=== PATIENT | female | born 1995 | race Caucasian/White ===

== ENCOUNTER 2018-04-18 12:11 | Emergency (ER) | payer OTHER ==
[2018-04-18 13:05] LABS: Absolute Lymphocytes (CBC) 1.9 K/uL (0.7-4.9); Absolute Monocytes 0.7 K/uL (0.1-1.3); Basophils % 0.4 % (0-1.3); Eosinophils % 3.5 % (0-4.4); Hematocrit 33.5 % (36.0-45.0); Lymphocytes % 32.3 % (15.3-44.8); MCH 20.9 pg (27.0-35.0); MCV 65.1 fL (80-100); Monocytes % 12.3 % (3.3-12.3); RBC Red Blood Cell Count 5.15 M/uL (3.86-4.86)
[2018-04-18] MEDS ORDERED: ONDANSETRON 4 MG (ODT) TAB ONE (13:07)
[2018-04-18 13:21] LABS: Urine Blood 2+ (NEG); Urine Glucose NEGATIVE (NEG); Urine Protein 2+ (NEG); Urine pH 5.5 (5.0-7.0)
[2018-04-18 13:28] LABS: ALT/SGPT 22 U/L (12-78); AST/SGOT 22 U/L (15-37); Albumin 4.1 g/dL (3.4-5.0); Alkaline Phosphatase 94 U/L (45-117); Amylase Level 52 U/L (25-115); BUN Blood Urea Nitrogen 16 mg/dL (7-18); Bicarbonate 27 mmol/L (21-32); Bilirubin Direct 0.2 mg/dL (0-0.2); Glucose Level 79 mg/dL (74-106); Lipase 147 U/L (73-393); Potassium 3.8 mmol/L (3.5-5.1); Sodium Level 139 mmol/L (136-145)
[2018-04-18 13:36] LABS: Urine Bacteria <20 /HPF (<20); Urine Culture Reflex Order NOT NEEDED; Urine Mucus 1+ /HPF (NONE SEEN); Urine RBC <5 /HPF (NONE SEEN)
[2018-04-18 13:58] LABS: Blood Morphology Comment NOTED (NOT SEEN); Hypochromasia 1+; Platelet Estimate ADEQ; Urine White Blood Cell Casts OK
--- NOTE | 2018-04-18 16:42 | RAD REPORT ---
EXAM DESCRIPTION: US - Pelvis Complete - 04/18/2018 4:34 pm CLINICAL HISTORY: pelvic pain Pelvic pain. COMPARISON: No comparisons FINDINGS: The uterus is normal in size, shape and echotexture. The uterus measures 8.0 x 5.4 x 4.2 c m. The endometrial stripe measures 7 mm, normal. Both ovaries are normal in size, shape and echotexture. The right ovary measures 3.3 x 2.4 x 2.2 cm. The left ovary measures 3.0 x 2.8 x 1.7 cm. No ovarian or parovarian lesions. No adnexal masses. Normal Doppler blood flow was demonstrated to both ovaries. No significant pelvic ascites. IMPRESSION: Unremarkable study.
--- NOTE | 2018-04-18 17:00 | EDPHYS ---
Physician Documentation [facility] Name: Tigist Farias Age: 22 yrs Sex: Female : 1995 Arrival Date: 04/18/2018 Time: 12:15 Bed 8 Private MD: None, None ED Physician Eduardo Reich HPI: 04/18 12:52 This 22 yrs old Female presents to ER via Ambulatory with complaints of jmm Urinary Problem. 12:52 The patient complains of pain in the right flank. The pain does not radiate. Onset: The jmm symptoms/episode began/occurred gradually, 1 day(s) ago. Modifying factors: The symptoms are alleviated by nothing. the symptoms are aggravated by nothing. Associated signs and symptoms: Pertinent positives: nausea. This is a 22 year old female with a history of chronic uti's that presents to the ED with lower back pain, dysuria beginning 1 days ago. Patient states she attempted to take a shower to relieve her back pain and states that she nearly collapsed. Patient denies fever or vomiting. . 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 - Social history:: Smoking status: Patient/guardian denies using tobacco. - Ebola Screening: : Patient denies travel to an Ebola-affected area in the 21 days before illness onset. ROS: 12:52 Cardiovascular: Negative for chest pain, palpitations, and edema, Respiratory: Negative jmm for shortness of breath, cough, wheezing, and pleuritic chest pain. 12:52 Constitutional: Positive for fatigue. 12:52 Abdomen/GI: Positive for abdominal pain, nausea. 12:52 Back: Positive for pain at rest. 12:52 : Positive for urinary symptoms. 12:52 All other systems are negative. Exam: 12:52 Constitutional: This is a well developed, well nourished patient who is awake, alert, jmm and in no acute distress. Head/Face: atraumatic. Chest/axilla: Normal chest wall appearance and motion. Cardiovascular: Regular rate and rhythm. No edema appreciated Respiratory: Normal respirations, no respiratory distress appreciated 12:52 Abdomen/GI: Inspection: abdomen appears normal, Bowel sounds: normal, Palpation: soft, mild abdominal tenderness, in the suprapubic area. 12:52 Back: CVA tenderness, that is mild, is noted on the right. 12:52 Skin: Appearance: Color: normal in color. 12:52 Neuro: Orientation: is normal, Mentation: is normal, Memory: is normal. 12:52 Psych: Behavior/mood is pleasant, cooperative. 12:55 : Pelvic Exam: Speculum exam: normal findings, bimanual exam reveals right adnexal jmm tenderness, left adnexal tenderness. Vital Signs: 12:20 BP 106 / 63; Pulse 80; Resp 18; Temp 98.7(O); Pulse Ox 100% on R/A; Weight 42.18 kg aj1 (R); Height 5 ft. 6 in. (167.64 cm) (R); Pain 9/10; 13:30 BP 105 / 66; Pulse 84; Resp 16 S; Pulse Ox 100% on R/A; aa5 14:50 BP 102 / 77; Pulse 78; Resp 16 S; Pulse Ox 100% on R/A; aa5 15:33 BP 103 / 65; Pulse 85; Resp 16; Pulse Ox 100% ; jl7 16:26 BP 96 / 54; Pulse 62; Resp 14; Temp 98.3; Pulse Ox 99% on R/A; Pain 0/10; ch 17:23 BP 111 / 61; Pulse 91; Resp 16; Pulse Ox 100% on R/A; Pain 0/10; iw 12:20 Body Mass Index 15.01 (42.18 kg, 167.64 cm) aj1 MDM: 12:31 Patient medically screened. [facility] 16:59 Data reviewed: vital signs, nurses notes, radiologic studies, ultrasound. Counseling: I yazm had a detailed discussion with the patient and/or guardian regarding: the historical points, exam findings, and any diagnostic results supporting the discharge/admit diagnosis, lab results, radiology results, the need for outpatient follow up, to return to the emergency department if symptoms worsen or persist or if there are any questions or concerns that arise at home. 16:59 ED course: Patient is alert and non toxic in appearance in the ED. Symptoms appear to jmm be related to pelvic pain. labs and us unremarkable. i do not suspect ovarian torsion. Due to dysuria patient prescribed oral antibiotics. 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 Patient understood and agrees with the plan of care. . 04/18 12:39 Order name: Amylase, Serum; Complete Time: 13:59 [facility] 04/18 12:39 Order name: Basic Metabolic Panel; Complete Time: 13:59 [facility] 04/18 12:39 Order name: CBC with Diff; Complete Time: 13:59 [facility] 04/18 12:39 Order name: Creatinine for Radiology; Complete Time: 13:59 [facility] 04/18 12:39 Order name: Hepatic Function; Complete Time: 13:59 [facility] 04/18 12:39 Order name: Lipase; Complete Time: 13:59 [facility] 04/18 12:39 Order name: Urine Microscopic Only; Complete Time: 13:59 [facility] 04/18 12:42 Order name: Urine Dipstick--Ancillary (enter results); Complete Time: 13:[address] [facility] 04/18 12:42 Order name: Urine --Ancillary (enter results); Complete Time: 13:[address] [facility] 04/18 13:19 Order name: CBC Smear Scan; Complete Time: 13:59 [facility] 04/18 14:26 Order name: GC (GONORR/CHLAMYDIA) Probe [facility] 04/18 14:26 Order name: Wet Prep; Complete Time: 15:39 [facility] 04/18 14:47 Order name: US Pelvis Complete; Complete Time: 16:48 [facility] 04/18 12:39 Order name: Urine Test (obtain specimen); Complete Time: 12:46 [facility] 04/18 12:39 Order name: IV Saline Lock; Complete Time: 12:46 [facility] 04/18 12:39 Order name: Labs collected and sent; Complete Time: 12:46 [facility] 04/18 12:39 Order name: Urine Dipstick-Ancillary (obtain specimen); Complete Time: 12:46 [facility] Administered Medications: 13:06 Drug: Zofran 4 mg Route: PO; aa5 19:20 Follow up: Response: No adverse reaction; Marked relief of symptoms 13:07 CANCELLED (Physician Discretion): Zofran 4 mg IVP once; over 2 minutes aa5 13:07 CANCELLED (Physician Discretion): NS 0.9% 1000 ml IV at 1 bolus Per protocol; 1000 mL aa5 bolus Disposition: 04/18/18 16:59 Discharged to Home. Impression: Pelvic Pain, Dysuria. - Condition is Stable. - Discharge Instructions: Dysuria. - Prescriptions for Cephalexin 500 mg Oral Capsule - take 1 capsule by ORAL route every 12 hours for 10 days; 20 capsule. - Medication Reconciliation Form, Thank You Letter, Antibiotic Education, Prescription Opioid Use form. - Follow up: Vaughn Snider MD; When: 2 - 3 days; Reason: Continuance of care. Addendum: 04/20/2018 13:59 Co-signature as Attending Physician, Eduardo Reich MD I agree with the assessment and c yeager plan of care. Signatures: Dispatcher [employer] EDMS Cheryl Elder RN RN aj1 Eduardo Reich MD MD cha Mickail, Joel, PA PA [facility] Nydia Bar RN RN Nila Meade RN RN [facility] Adry De Leon RN Corrections: (The following items were deleted from the chart) 04/18 13:07 12:44 Zofran 4 mg IVP once; over 2 minutes ordered. [place] [id number] 13:07 12:44 NS 0.9% 1000 ml IV at 1 bolus Per protocol; 1000 mL bolus ordered. [place] [address] 13:07 13:06 Zofran 4 mg IVP once; over 2 minutes ordered. [place] [address] 13:07 13:06 NS 0.9% 1000 ml IV at 1 bolus Per protocol; 1000 mL bolus ordered. [place] [address] 17:23 16:59 04/18/2018 16:59 Discharged to Home. Impression: Pelvic Pain; Dysuria. Condition iw is Stable. Forms are Medication Reconciliation Form, Thank You Letter, Antibiotic Education, Prescription Opioid Use. Follow up: Vaughn Snider; When: 2 - 3 days; Reason: Continuance of care. [facility] 22:01 21:59 ED course: Patient is alert and non toxic in appearance in the ED. Symptoms m appear to be related to pelvic pain. labs and us unremarkable. i do not suspect ovarian torsion. Due to dysuria patient prescribed oral antibiotics. 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 Patient understood and agrees with the plan of care. . [facility]
--- NOTE | 2018-04-18 17:00 | ER ---
Nurse's Notes [facility] Name: Tigist Farias Age: 22 yrs Sex: Female : 1995 Arrival Date: 04/18/2018 Time: 12:15 Bed 8 Private MD: None, None Diagnosis: Pelvic Pain;Dysuria Presentation: 04/18 12:16 Presenting complaint: Patient states: Dysuria, urinary frequency, and lower pain since aj1 yesterday. Denies fever. Transition of care: patient was not received from another setting of care. Onset of symptoms was April 17, 2018. Risk Assessment: Do you want to hurt yourself or someone else? Patient reports no desire to harm self or others. Initial Sepsis Screen: Does the patient meet any 2 criteria? No. Patient's initial sepsis screen is negative. Does the patient have a suspected source of infection? No. Patient's initial sepsis screen is negative. Care prior to arrival: None. 12:16 Method Of Arrival: Ambulatory aj 12:16 Acuity: VERONICA 4 aj1 Triage Assessment: 12:20 General: Appears in no apparent distress. comfortable, Behavior is calm, cooperative, aj1 appropriate for age. Pain: Pain currently is 9 out of 10 on a pain scale. Neuro: Level of Consciousness is awake, alert, obeys commands. Cardiovascular: Patient's skin is warm and dry. Respiratory: Airway is patent Respiratory effort is even, unlabored, Respiratory pattern is regular, symmetrical. 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 - Social history:: Smoking status: Patient/guardian denies using tobacco. - Ebola Screening: : Patient denies travel to an Ebola-affected area in the 21 days before illness onset. Screenin:45 Abuse screen: Denies threats or abuse. Nutritional screening: No deficits noted. aa5 Tuberculosis screening: No symptoms or risk factors identified. Fall Risk None identified. Assessment: 12:45 General: Appears comfortable, Behavior is calm, cooperative. Pain: Complains of pain in aa5 suprapubic area Pain does not radiate. Pain currently is 9 out of 10 on a pain scale. Quality of pain is described as pressure, Pain began 1 day ago. Is continuous. Neuro: Level of Consciousness is awake, alert, obeys commands, Oriented to person, place, time, situation. Cardiovascular: Heart tones S1 S2 present Rhythm is regular. Respiratory: Airway is patent Respiratory effort is even, unlabored, Respiratory pattern is regular, symmetrical. GI: Abdomen is flat, non-distended, Bowel sounds present X 4 quads. Abd is soft and non tender X 4 quads. Reports nausea, Patient currently denies vomiting. : Reports urinary frequency, Denies burning with urination. EENT: No signs and/or symptoms were reported regarding the EENT system. Derm: Skin is pink, warm \T\ dry. Musculoskeletal: Range of motion: intact in all extremities. 13:00 Reassessment: Unable to obtain IV access at this time, PA notified. PA states to wait aa5 on lab results before attempting for IV again. Zofran changed to PO and order to give fluids PO a few minutes after Zofran administration. . 14:00 Reassessment: Patient and/or family updated on plan of care and expected duration. Pain aa5 level reassessed. Patient is alert, oriented x 3, equal unlabored respirations, skin warm/dry/pink. Pt tolerated water well, PA notified . 14:58 Reassessment: Patient and/or family updated on plan of care and expected duration. Pain aa5 level reassessed. Patient is alert, oriented x 3, equal unlabored respirations, skin warm/dry/pink. Awaiting US . 16:26 Reassessment: Patient appears in no apparent distress at this time. No changes from previously documented assessment. Patient and/or family updated on plan of care and expected duration. Pain level reassessed. Patient is alert, oriented x 3, equal unlabored respirations, skin warm/dry/pink. US at bedside Patient denies pain at this time. Vital Signs: 12:20 BP 106 / 63; Pulse 80; Resp 18; Temp 98.7(O); Pulse Ox 100% on R/A; Weight 42.18 kg aj1 (R); Height 5 ft. 6 in. (167.64 cm) (R); Pain 9/10; 13:30 BP 105 / 66; Pulse 84; Resp 16 S; Pulse Ox 100% on R/A; aa5 14:50 BP 102 / 77; Pulse 78; Resp 16 S; Pulse Ox 100% on R/A; aa5 15:33 BP 103 / 65; Pulse 85; Resp 16; Pulse Ox 100% ; jl7 16:26 BP 96 / 54; Pulse 62; Resp 14; Temp 98.3; Pulse Ox 99% on R/A; Pain 0/10; ch 17:23 BP 111 / 61; Pulse 91; Resp 16; Pulse Ox 100% on R/A; Pain 0/10; iw 12:20 Body Mass Index 15.01 (42.18 kg, 167.64 cm) aj1 ED Course: 12:15 Patient arrived in ED. mr 12:15 None, None is Private Physician. mr 12:20 Triage completed. aj1 12:20 Arm band placed on Patient placed in an exam room. aj1 12:26 Mark Thomason PA is PHCP. [facility] 12:26 Eduardo Reich MD is Attending Physician. [facility] 12:30 Urine collected: clean catch specimen, cloudy, dandre colored. jb1 12:45 Nila Meade, RN is Primary Nurse. aa5 12:45 Patient has correct armband on for positive identification. Placed in gown. Bed in low aa5 position. Call light in reach. Side rails up X2. 12:50 2 missed IV attempts by Cheryl Elder RN. aa5 14:45 Assist provider with pelvic exam: Set up pelvic tray. Performed by Mark LINARES aa5 Specimens sent to lab. Patient tolerated well. 16:04 Report given to MARY Rider. aa5 16:25 Primary Nurse role handed off by Nila Meade, RN ch 16:25 Adry De Leon, RN is Primary Nurse. ch 16:26 No apparent distress. Resting quietly. ch 16:26 Warm blanket given. Pillow given. ch 16:31 Ultrasound completed. Patient tolerated well. Radiology exam delayed due to BLADDER NOT sg3 FULL. 16:34 US Pelvis Complete In Process Unspecified. EDMS 16:59 Vaughn Snider MD is Referral Physician. [facility] 18:38 Valuables gave wallet to security to lock up, called both numbers on the face, got no bd answer at either number.. Administered Medications: 13:06 Drug: Zofran 4 mg Route: PO; aa5 19:20 Follow up: Response: No adverse reaction; Marked relief of symptoms 13:07 CANCELLED (Physician Discretion): Zofran 4 mg IVP once; over 2 minutes aa5 13:07 CANCELLED (Physician Discretion): NS 0.9% 1000 ml IV at 1 bolus Per protocol; 1000 mL aa5 bolus Outcome: 16:59 Discharge ordered by MD. quinn 17:23 Discharged to home ambulatory, with friend. iw 17:23 Condition: good 17:23 Discharge instructions given to patient, Instructed on discharge instructions, follow up and referral plans. medication usage, Demonstrated understanding of instructions, follow-up care, medications, Prescriptions given X 1. 17:23 Patient left the ED. iw Signatures: Dispatcher [employer] EDMS Sebastián Joiner jb1 Savanna Aburto Christina, RN Cheryl Stern ch, RN RN aj1 Mark Thomason PA PA jmm Rivera, Maria mr Williams, Irene, RN MARY Nila Meade RN RN aa5 Lotus Davis RN RN jl7 Sharona Osborn 3
[2018-04-21 20:33] LABS: C.trachomatis RNA,TMA Not Detected (Not Detected)
== END 2018-04-18 17:23 | disposition home or self-care (01) ==
LOC: ER 12:11
DX: R30.0 Dysuria (principal)
CPT/HCPCS: 36415; 76856; 80048; 80076; 81003; 81015; 81025; 82150; 83690; 85025; 87210; 87490; 87590; 99284

== ENCOUNTER 2018-06-15 17:02 | Emergency (ER) | payer OTHER ==
[2018-06-15 19:20] LABS: ALT/SGPT 15 U/L (12-78); AST/SGOT 17 U/L (15-37); Alkaline Phosphatase 88 U/L (45-117); BUN Blood Urea Nitrogen 8 mg/dL (7-18); Bicarbonate 24 mmol/L (21-32); Bilirubin Total 0.8 mg/dL (0.2-1.0); Glucose Level 84 mg/dL (74-106); Potassium 3.7 mmol/L (3.5-5.1); Protein, Total 7.7 g/dL (6.4-8.2); Sodium Level 139 mmol/L (136-145)
--- NOTE | 2018-06-15 19:47 | ER ---
Nurse's Notes [facility] Name: Tigist Farias Age: 22 yrs Sex: Female : 1995 Arrival Date: 06/15/2018 Time: 17:07 Bed 10 Private MD: None, None Diagnosis: related conditions, unspecified Presentation: 06/15 17:28 Presenting complaint: Patient states: "I had a very difficult labor with my last baby, hb then was hospitalized for 3 weeks for kidney infection, and I was told I could have , and if I got again it would be high risk, now I am again and am worried I am going to ." + home test, LMP 05/20/18. Transition of care: patient was not received from another setting of care. Onset of symptoms was June 15, 2018. Risk Assessment: Do you want to hurt yourself or someone else? Patient reports no desire to harm self or others. Care prior to arrival: None. 17:28 Method Of Arrival: Ambulatory 17:28 Acuity: VERONICA 4 hb 18:35 Initial Sepsis Screen: Does the patient meet any 2 criteria? No. Patient's initial rv sepsis screen is negative. Does the patient have a suspected source of infection? No. Patient's initial sepsis screen is negative. 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 - Social history:: Smoking status: Patient uses tobacco products, Patient uses Patient/guardian denies using alcohol, street drugs, The patient lives. - Ebola Screening: : No symptoms or risks identified at this time. - Family history:: not pertinent. Screenin:35 Abuse screen: Denies threats or abuse. Denies injuries from another. Nutritional rv screening: No deficits noted. Tuberculosis screening: No symptoms or risk factors identified. Fall Risk None identified. Assessment: 18:34 General: Appears in no apparent distress. comfortable, Behavior is calm, cooperative. rv Pain: Denies pain. Neuro: Level of Consciousness is awake, alert, obeys commands, Oriented to person, place, time, situation. Cardiovascular: Capillary refill < 3 seconds. Respiratory: Airway is patent. GI: No signs and/or symptoms were reported involving the gastrointestinal system. : No signs and/or symptoms were reported regarding the genitourinary system. EENT: No signs and/or symptoms were reported regarding the EENT system. Derm: Skin is intact. Vital Signs: 17:31 BP 131 / 74; Pulse 98; Resp 16; Temp 98; Pulse Ox 100% on R/A; Pain 0/10; hb 18:45 BP 123 / 112; Pulse 95; Pulse Ox 97% on R/A; rv 20:11 BP 120 / 76; Pulse 92; Resp 18; Pulse Ox 100% ; Pain 0/10; rv ED Course: 17:07 Patient arrived in ED. sb2 17:07 None, None is Private Physician. sb2 17:31 Triage completed. hb 17:32 Arm band placed on right wrist. hb 17:41 Ashley Batista MD is Attending Physician. ma2 18:35 Patient has correct armband on for positive identification. Call light in reach. Adult rv w/ patient. Pulse ox on. NIBP on. 18:46 Initial lab(s) drawn, by me, sent to lab. rv 20:09 No provider procedures requiring assistance completed. Patient did not have IV access rv during this emergency room visit. Administered Medications: No medications were administered Outcome: 19:46 Discharge ordered by . ma2 20:11 Discharged to home rv 20:11 Condition: stable 20:11 Discharge instructions given to patient. 20:11 Patient left the ED. rv Signatures: Ami Brannon, RN RN Ashley Batista MD MD va2 Anita Ocampo 2 Néstor Porter RN RN rv
--- NOTE | 2018-06-15 19:47 | EDPHYS ---
Physician Documentation [facility] Name: Tigist Farias Age: 22 yrs Sex: Female : 1995 Arrival Date: 06/15/2018 Time: 17:07 Bed 10 Private MD: None, None ED Physician Ashley Batista HPI: 06/15 19:44 This 22 yrs old Female presents to ER via Ambulatory with complaints of ma2 Anxiety - ABOUT . 19:44 6 weeks and states that she had kidney problem with last and want ma2 that to be checked no symptoms today . Onset: The symptoms/episode began/occurred gradually, 6 week(s) ago. Severity of symptoms: At their worst the symptoms were very mild. The patient has experienced a previous episode. 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 - Social history:: Smoking status: Patient uses tobacco products, Patient uses Patient/guardian denies using alcohol, street drugs, The patient lives. - Ebola Screening: : No symptoms or risks identified at this time. - Family history:: not pertinent. ROS: 19:44 Constitutional: Negative for fever, chills, and weight loss, ENT: Negative for injury, ma2 pain, and discharge, Respiratory: Negative for shortness of breath, cough, wheezing, and pleuritic chest pain. 19:44 All other systems are negative. Exam: 19:44 Constitutional: This is a well developed, well nourished patient who is awake, alert, ma2 and in no acute distress. Head/Face: Normocephalic, atraumatic. Chest/axilla: Normal chest wall appearance and motion. Nontender with no deformity. No lesions are appreciated. Cardiovascular: Regular rate and rhythm with a normal S1 and S2. No gallops, murmurs, or rubs. Normal PMI, no JVD. No pulse deficits. Respiratory: Lungs have equal breath sounds bilaterally, clear to auscultation and percussion. No rales, rhonchi or wheezes noted. No increased work of breathing, no retractions or nasal flaring. Abdomen/GI: Soft, non-tender, with normal bowel sounds. No distension or tympany. No guarding or rebound. No evidence of tenderness throughout. Vital Signs: 17:31 BP 131 / 74; Pulse 98; Resp 16; Temp 98; Pulse Ox 100% on R/A; Pain 0/10; hb 18:45 BP 123 / 112; Pulse 95; Pulse Ox 97% on R/A; rv 20:11 BP 120 / 76; Pulse 92; Resp 18; Pulse Ox 100% ; Pain 0/10; rv MDM: 17:41 Patient medically screened. ma2 19:44 Differential Diagnosis unlikely nikole, dehydration . Data reviewed: vital ma2 signs, nurses notes, lab test result(s). Counseling: I had a detailed discussion with the patient and/or guardian regarding: the historical points, exam findings, and any diagnostic results supporting the discharge/admit diagnosis, the presence of at least one elevated blood pressure reading (>120/80) during this emergency department visit, the need for outpatient follow up. 06/15 18:14 Order name: CMP; Complete Time: 19:20 ma2 06/15 19:30 Order name: Urine Dipstick--Ancillary (enter results) cc 06/15 17:43 Order name: NPO; Complete Time: 18:00 ma2 06/15 19:30 Order name: Urine Dipstick-Ancillary (obtain specimen); Complete Time: 19:30 cc 06/15 19:31 Order name: Urine Test (obtain specimen); Complete Time: 19:31 cc 06/15 19:31 Order name: Urine --Ancillary (enter results) cc Administered Medications: No medications were administered Disposition: 06/15/18 19:46 Discharged to Home. Impression: related conditions, unspecified. - Condition is Stable. - Discharge Instructions: Hyperemesis Gravidarum. - Medication Reconciliation Form, Thank You Letter, Antibiotic Education, Prescription Opioid Use, Work release form form. - Follow up: Private Physician; When: Tomorrow; Reason: Continuance of care. - Problem is new. - Symptoms are unchanged. Signatures: Dispatcher [employer] EDMS Alivia Ruiz cc Ami Brannon RN RN Ashley Hanna MD MD ma2 Néstor Porter, RN RN rv Corrections: (The following items were deleted from the chart) 20:11 19:46 06/15/2018 19:46 Discharged to Home. Impression: related conditions, rv unspecified. Condition is Stable. Forms are Medication Reconciliation Form, Thank You Letter, Antibiotic Education, Prescription Opioid Use. Follow up: Private Physician; When: Tomorrow; Reason: Continuance of care. Problem is new. Symptoms are unchanged. maureen
[2018-06-15 20:13] LABS: Urine Specific Gravity 1.015 (1.005-1.030)
[2018-06-15 20:14] LABS: Urine Blood TRACE (NEG); Urine Glucose NEGATIVE (NEG); Urine Protein NEGATIVE (NEG); Urine Specific Gravity 1.015 (1.005-1.030)
== END 2018-06-15 20:11 | disposition home or self-care (01) ==
LOC: ER 17:02
DX: O26.891 Other specified pregnancy related conditions, first trimester (principal); O99.331 Smoking (tobacco) complicating pregnancy, first trimester; Z3A.01 Less than 8 weeks gestation of pregnancy
CPT/HCPCS: 36415; 80053; 81003; 81025; 99283

== ENCOUNTER 2018-06-17 16:12 | Emergency (ER) | payer OTHER ==
[2018-06-17] MEDS ORDERED: NA CHLORIDE 0.9% 1,000 ML ONE (16:54)
[2018-06-17 17:02] LABS: Urine Blood NEGATIVE (NEG); Urine Glucose NEGATIVE (NEG); Urine Protein TRACE (NEG); Urine Specific Gravity 1.025 (1.005-1.030); Urine pH 5.5 (5.0-7.0)
[2018-06-17 17:03] LABS: Urine Bacteria 20-50 /HPF (<20); Urine Culture Reflex Order NOT NEEDED; Urine RBC <5 /HPF (NONE SEEN)
[2018-06-17 17:09] LABS: Absolute Lymphocytes (CBC) 1.8 K/uL (0.7-4.9); Absolute Monocytes 0.7 K/uL (0.1-1.3); Absolute Neutrophil 3.5 K/uL (1.8-8.0); Basophils % 0.5 % (0-1.3); Eosinophils % 5.8 % (0-4.4); Lymphocytes % 28.3 % (15.3-44.8); MCH 20.8 pg (27.0-35.0); MCV 68.7 fL (80-100); MPV 6.9 fL (7.6-11.3); Monocytes % 11.2 % (3.3-12.3); RBC Red Blood Cell Count 5.13 M/uL (3.86-4.86)
[2018-06-17 17:26] LABS: BUN Blood Urea Nitrogen 13 mg/dL (7-18); Bicarbonate 23 mmol/L (21-32); Glucose Level 83 mg/dL (74-106); Potassium 3.6 mmol/L (3.5-5.1); Sodium Level 140 mmol/L (136-145)
[2018-06-17 17:46] LABS: Blood Morphology Comment NOTED (NOT SEEN); Hypochromasia 1+; Platelet Estimate ADEQ; Urine White Blood Cell Casts OK
[2018-06-17 17:47] LABS: Hematocrit 33.2 % (36.0-45.0)
--- NOTE | 2018-06-17 18:28 | EDPHYS ---
Physician Documentation [facility] Name: Tigist Farias Age: 22 yrs Sex: Female : 1995 Arrival Date: 06/17/2018 Time: 16:16 Bed 30 Private MD: ED Physician Eduardo Reich HPI: 06/17 16:54 This 22 yrs old Female presents to ER via Ambulatory with complaints of snw Dizziness. 16:54 The patient presents with dizziness. Onset: The symptoms/episode began/occurred snw suddenly, today. Context: occurred at home. Modifying factors: The symptoms are alleviated by nothing. Associated signs and symptoms: Pertinent positives: headache, nausea. Severity of symptoms: At their worst the symptoms were moderate. The patient has experienced similar episodes in the past. The patient has not recently seen a physician. 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 - Social history:: Smoking status: Patient/guardian denies using tobacco, Patient/guardian denies using alcohol. - Ebola Screening: : Patient negative for fever greater than or equal to 101.5 degrees Fahrenheit, and additional compatible Ebola Virus Disease symptoms Patient denies exposure to infectious person Patient denies travel to an Ebola-affected area in the 21 days before illness onset. ROS: 16:49 Constitutional: Negative for fever, chills, and weight loss, Eyes: Negative for injury, snw pain, redness, and discharge, ENT: Negative for injury, pain, and discharge, Neck: Negative for injury, pain, and swelling, Cardiovascular: Negative for chest pain, palpitations, and edema, Respiratory: Negative for shortness of breath, cough, wheezing, and pleuritic chest pain, Abdomen/GI: Negative for abdominal pain, nausea, vomiting, diarrhea, and constipation, Back: Negative for injury and pain, : Negative for injury, bleeding, discharge, and swelling, MS/Extremity: Negative for injury and deformity, Skin: Negative for injury, rash, and discoloration, Psych: Negative for depression, anxiety, suicide ideation, homicidal ideation, and hallucinations. 16:49 Neuro: Positive for dizziness, headache. Exam: 16:49 Constitutional: This is a well developed, well nourished patient who is awake, alert, snw and in no acute distress. Head/Face: Normocephalic, atraumatic. Eyes: Pupils equal round and reactive to light, extra-ocular motions intact. Lids and lashes normal. Conjunctiva and sclera are non-icteric and not injected. Cornea within normal limits. Periorbital areas with no swelling, redness, or edema. ENT: Nares patent. No nasal discharge, no septal abnormalities noted. Tympanic membranes are normal and external auditory canals are clear. Oropharynx with no redness, swelling, or masses, exudates, or evidence of obstruction, uvula midline. Mucous membranes moist. Neck: Trachea midline, no thyromegaly or masses palpated, and no cervical lymphadenopathy. Supple, full range of motion without nuchal rigidity, or vertebral point tenderness. No Meningismus. Chest/axilla: Normal chest wall appearance and motion. Nontender with no deformity. No lesions are appreciated. Cardiovascular: Regular rate and rhythm with a normal S1 and S2. No gallops, murmurs, or rubs. Normal PMI, no JVD. No pulse deficits. Respiratory: Lungs have equal breath sounds bilaterally, clear to auscultation and percussion. No rales, rhonchi or wheezes noted. No increased work of breathing, no retractions or nasal flaring. Abdomen/GI: Soft, non-tender, with normal bowel sounds. No distension or tympany. No guarding or rebound. No evidence of tenderness throughout. Back: No spinal tenderness. No costovertebral tenderness. Full range of motion. Skin: Warm, dry with normal turgor. Normal color with no rashes, no lesions, and no evidence of cellulitis. MS/ Extremity: Pulses equal, no cyanosis. Neurovascular intact. Full, normal range of motion. Neuro: Awake and alert, GCS 15, oriented to person, place, time, and situation. Cranial nerves II-XII grossly intact. Motor strength 5/5 in all extremities. Sensory grossly intact. Cerebellar exam normal. Normal gait. Vital Signs: 16:29 BP 100 / 61; Pulse 95; Resp 18; Temp 98.1(TE); Pulse Ox 100% on R/A; Weight 44 kg; hj Height 5 ft. 6 in. (167.64 cm); Pain 8/10; 17:36 BP 104 / 75; Pulse 80; Resp 18; Pulse Ox 100% on R/A; mg2 18:50 BP 105 / 64; Pulse 81; Resp 18; Pulse Ox 100% on R/A; Pain 0/10; mg2 16:29 Body Mass Index 15.66 (44.00 kg, 167.64 cm) hj MDM: 16:35 Patient medically screened. snw 18:29 Data reviewed: vital signs, nurses notes. Data interpreted: Pulse oximetry: on room air snw is 100 %. Interpretation: normal. Counseling: I had a detailed discussion with the patient and/or guardian regarding: the historical points, exam findings, and any diagnostic results supporting the discharge/admit diagnosis, lab results, the need for outpatient follow up, for definitive care, to return to the emergency department if symptoms worsen or persist or if there are any questions or concerns that arise at home. Special discussion: Based on the history and exam findings, there is no indication for further emergent testing or inpatient evaluation. I discussed with the patient/guardian the need to see the OB Gyne specialist for further evaluation of the symptoms. I discussed with the patient/guardian the need to see the primary care provider for further evaluation of the symptoms. 06/17 16:34 Order name: Basic Metabolic Panel; Complete Time: 17:29 snw 06/17 16:34 Order name: CBC with Diff; Complete Time: 17:49 snw 06/17 16:34 Order name: Urine Drug Screen; Complete Time: 18:33 snw 06/17 16:34 Order name: Urine Culture snw 06/17 16:34 Order name: Urine Microscopic Only; Complete Time: 17:08 snw 06/17 16:56 Order name: Urine Dipstick--Ancillary (enter results) bd 06/17 16:34 Order name: IV Saline Lock; Complete Time: 16:58 snw 06/17 16:34 Order name: Labs collected and sent; Complete Time: 16:58 snw 06/17 16:34 Order name: Urine Test (obtain specimen); Complete Time: 16:58 snw 06/17 16:34 Order name: Urine Dipstick-Ancillary (obtain specimen); Complete Time: 16:58 snw 10/03 16:56 Order name: Urine --Ancillary (enter results); Complete Time: 17:08 bd 06/17 16:56 Order name: Urine Dipstick-Ancillary; Complete Time: 17:09 EDMS 06/17 17:17 Order name: CBC Smear Scan; Complete Time: 17:49 EDMS Administered Medications: 16:56 Drug: NS 0.9% 1000 ml Route: IV; Rate: 1000 ml; Site: right antecubital; mg2 18:45 Follow up: Response: No adverse reaction; IV Status: Completed infusion mg2 Disposition: 06/18 07:12 Co-signature as Attending Physician, Eduardo Reich MD I agree with the assessment and luis plan of care. Disposition: 06/17/18 18:28 Discharged to Home. Impression: Malaise and fatigue, state, Anemia, unspecified. - Condition is Stable. - Discharge Instructions: Anemia, Nonspecific, Fatigue, First Trimester of , Rehydration, Adult. - Prescriptions for Vitamin 27- 0.8 mg Oral Tablet - take 1 tablet by ORAL route once daily; 60 tablet. - Medication Reconciliation Form, Thank You Letter, Antibiotic Education, Prescription Opioid Use, Work release form form. - Follow up: Private Physician; When: 2 - 3 days; Reason: Recheck today's complaints, Continuance of care, Re-evaluation by your physician. Follow up: Emergency Department; When: As needed; Reason: Worsening of condition. - Problem is new. - Symptoms are unchanged. Signatures: Dispatcher [employer] [facility] Eduardo Reich MD MD cha Therrien, Shelly, CDL FLATBED TRUCK DRIVER-C CDL FLATBED TRUCK DRIVER-Csnw Sim Garrett RN RN Vito Rico RN RN mg2 Corrections: (The following items were deleted from the chart) 06/17 18:51 18:28 06/17/2018 18:28 Discharged to Home. Impression: Malaise and fatigue; mg2 state; Anemia, unspecified. Condition is Stable. Forms are Medication Reconciliation Form, Thank You Letter, Antibiotic Education, Prescription Opioid Use. Follow up: Private Physician; When: 2 - 3 days; Reason: Recheck today's complaints, Continuance of care, Re-evaluation by your physician. Follow up: Emergency Department; When: As needed; Reason: Worsening of condition. Problem is new. Symptoms are unchanged. snw
--- NOTE | 2018-06-17 18:28 | ER ---
Nurse's Notes [facility] Name: Tigist Farias Age: 22 yrs Sex: Female : 1995 Arrival Date: 06/17/2018 Time: 16:16 Bed 30 Private MD: Diagnosis: Malaise and fatigue; state;Anemia, unspecified Presentation: 06/17 16:26 Presenting complaint: Patient states: LMP- 04/29/18; been dizzy since this 12 noon; hj reports nausea; denies vomiting; reports chills and headache; reports leg cramps;. Transition of care: patient was not received from another setting of care. Onset of symptoms was June 17, 2018. Risk Assessment: Do you want to hurt yourself or someone else? Patient reports no desire to harm self or others. Initial Sepsis Screen: Does the patient meet any 2 criteria? No. Patient's initial sepsis screen is negative. Does the patient have a suspected source of infection? No. Patient's initial sepsis screen is negative. Care prior to arrival: None. 16:26 Method Of Arrival: Ambulatory 16:26 Acuity: VERONICA 3 Triage Assessment: 16:28 General: Appears in no apparent distress. uncomfortable, Behavior is calm, cooperative, hj appropriate for age. Pain: Complains of pain in left leg. 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 - Social history:: Smoking status: Patient/guardian denies using tobacco, Patient/guardian denies using alcohol. - Ebola Screening: : Patient negative for fever greater than or equal to 101.5 degrees Fahrenheit, and additional compatible Ebola Virus Disease symptoms Patient denies exposure to infectious person Patient denies travel to an Ebola-affected area in the 21 days before illness onset. Screenin:28 Abuse screen: Denies threats or abuse. Denies injuries from another. Nutritional hj screening: No deficits noted. Tuberculosis screening: No symptoms or risk factors identified. Fall Risk None identified. Assessment: 16:59 General: Appears in no apparent distress. comfortable, Behavior is calm, cooperative. mg2 Pain: Complains of pain in left leg Pain does not radiate. Pain currently is 2 out of 10 on a pain scale. Quality of pain is described as crampy, Pain began suddenly, this morning. Neuro: Level of Consciousness is awake, alert, obeys commands, Oriented to person, place, time, situation. Cardiovascular: Capillary refill < 3 seconds Patient's skin is warm and dry. Respiratory: Airway is patent Respiratory effort is even, unlabored, Respiratory pattern is regular, symmetrical. GI: Reports nausea. : Urine is clear. EENT: No signs and/or symptoms were reported regarding the EENT system. Derm: Skin is intact, is healthy with good turgor, Skin is pink, warm \T\ dry. normal. Musculoskeletal: No signs and/or symptoms reported regarding the musculoskeletal system. Vital Signs: 16:29 BP 100 / 61; Pulse 95; Resp 18; Temp 98.1(TE); Pulse Ox 100% on R/A; Weight 44 kg; hj Height 5 ft. 6 in. (167.64 cm); Pain 8/10; 17:36 BP 104 / 75; Pulse 80; Resp 18; Pulse Ox 100% on R/A; mg2 18:50 BP 105 / 64; Pulse 81; Resp 18; Pulse Ox 100% on R/A; Pain 0/10; mg2 16:29 Body Mass Index 15.66 (44.00 kg, 167.64 cm) ED Course: 16:16 Patient arrived in ED. mr 16:27 Triage completed. hj 16:29 Arm band placed on left wrist. hj 16:30 Patient has correct armband on for positive identification. Placed in gown. Bed in low hj position. Call light in reach. Side rails up X 1. 16:33 Florence Murillo FNP-C [facility]. snw 16:33 Eduardo Reich MD is Attending Physician. snw 16:38 Vito Rico, MARY is Primary Nurse. mg2 16:59 No provider procedures requiring assistance completed. Inserted saline lock: 22 gauge mg2 in right antecubital area, using aseptic technique. Blood collected. 18:46 IV discontinued, intact, bleeding controlled, No redness/swelling at site. Pressure mg2 dressing applied. Administered Medications: 16:56 Drug: NS 0.9% 1000 ml Route: IV; Rate: 1000 ml; Site: right antecubital; mg2 18:45 Follow up: Response: No adverse reaction; IV Status: Completed infusion mg2 Outcome: 18:28 Discharge ordered by MD. del [place] 18:46 Discharged to home ambulatory. mg2 18:46 Condition: stable 18:46 Discharge instructions given to patient, Instructed on discharge instructions, follow up and referral plans. medication usage, Demonstrated understanding of instructions, follow-up care, medications, Prescriptions given X 1. 18:51 Patient left the ED. mg2 Addendum: 06/20/2018 13:13 Addendum: Culture Results: Positive urine culture. Phone call Attempt #1 Attempted to h b contact pt to call in prescription, phone numbers provided are incorrect. Signatures: Florence Murillo, AGRONOMY TECHNICIANSinaC AGRONOMY TECHNICIAN-Kimberly Holcomb mr GarrettSim RN RN Ami Morales RN RN Vito Rico RN RN mg2 Corrections: (The following items were deleted from the chart) 06/17 16:30 16:29 Pulse 95bpm; Resp 18bpm; Pulse Ox 100% RA; Temp 98.1F Temporal; 44 kg; Height 5 hj ft. 6 in.; BMI: 15.6; Pain 8/10; hj
[2018-06-17 18:31] LABS: Barbiturates NEGATIVE (NEGATIVE); Benzodiazepines NEGATIVE (NEGATIVE); Cocaine NEGATIVE (NEGATIVE); METHAMPHETAM NEGATIVE (NEGATIVE); Methadone NEGATIVE (NEGATIVE); Opiates NEGATIVE (NEGATIVE); Phencyclidine NEGATIVE (NEGATIVE); THC Cannibis POSITIVE (NEGATIVE)
== END 2018-06-17 18:51 | disposition home or self-care (01) ==
LOC: ER 16:12
DX: R53.81 Other malaise (principal); R53.83 Other fatigue; D64.9 Anemia, unspecified; Z33.1 Pregnant state, incidental
CPT/HCPCS: 36415; 80048; 80307; 81003; 81015; 81025; 85025; 87077; 87086; 87088; 87186; 96360; 96361; 99284; J7030

== ENCOUNTER 2018-08-30 11:45 | Emergency (ER) | payer OTHER ==
[2018-08-30] MEDS ORDERED: NA CHLORIDE 0.9% 1,000 ML ONE (12:32)
[2018-08-30] MEDS ORDERED: ACETAMINOPHEN 325 MG TABLET ONE (12:32)
[2018-08-30 12:52] LABS: Absolute Lymphocytes (CBC) 1.3 K/uL (0.7-4.9); Absolute Monocytes 0.5 K/uL (0.1-1.3); Absolute Neutrophil 5.2 K/uL (1.8-8.0); Basophils % 0.3 % (0-1.3); Eosinophils % 3.1 % (0-4.4); Hematocrit 35.9 % (36.0-45.0); Lymphocytes % 17.6 % (15.3-44.8); MCH 21.6 pg (27.0-35.0); MCV 67.3 fL (80-100); MPV 6.5 fL (7.6-11.3); Monocytes % 7.1 % (3.3-12.3); RBC Red Blood Cell Count 5.33 M/uL (3.86-4.86)
[2018-08-30 13:11] LABS: ALT/SGPT 12 U/L (12-78); AST/SGOT 17 U/L (15-37); Albumin 3.7 g/dL (3.4-5.0); Alkaline Phosphatase 98 U/L (45-117); BUN Blood Urea Nitrogen 11 mg/dL (7-18); Bicarbonate 24 mmol/L (21-32); Bilirubin Direct 0.2 mg/dL (0-0.2); Bilirubin Total 0.9 mg/dL (0.2-1.0); Glucose Level 106 mg/dL (74-106); Lipase 316 U/L (73-393); Potassium 3.4 mmol/L (3.5-5.1); Protein, Total 8.5 g/dL (6.4-8.2); Sodium Level 136 mmol/L (136-145)
[2018-08-30 13:18] LABS: Urine Blood NEGATIVE (NEG); Urine Glucose NEGATIVE (NEG); Urine Protein NEGATIVE (NEG); Urine Specific Gravity >1.030 (1.005-1.030); Urine pH 5.5 (5.0-7.0)
[2018-08-30 13:23] LABS: Anisocytosis 1+; Blood Morphology Comment NOTED (NOT SEEN); Hypochromasia 1+; Platelet Estimate ADEQ; Platelets, Giant FEW
[2018-08-30 13:24] LABS: Urine Bacteria 20-50 /HPF (<20); Urine RBC <5 /HPF (NONE SEEN)
[2018-08-30 13:25] LABS: Urine Mucus 2+ /HPF (NONE SEEN)
[2018-08-30 13:29] LABS: Urine Culture Reflex Order REFLEXED
[2018-08-30] MEDS ORDERED: NITROFURAN MACRO 100 MG CAP PO ONE (13:58)
[2018-08-30] MEDS ORDERED: POTASSIUM 25 MEQ EFFERV TAB ONE (13:58)
--- NOTE | 2018-08-30 14:28 | EDPHYS ---
Physician Documentation [facility] Name: Tigist Farias Age: 22 yrs Sex: Female : 1995 Arrival Date: 08/30/2018 Time: 11:49 Bed 16 Private MD: ED Physician Drew Patten HPI: 08/30 12:20 This 22 yrs old Female presents to ER via Ambulatory with complaints of cp Urinary Retention, Abdominal Cramping, Low Back Pain. 12:20 The patient presents with urinary symptoms, frequency, urinary retention, lower cp abdominal cramping. 12:20 Onset: The symptoms/episode began/occurred 2 day(s) ago. cp 12:20 Associated signs and symptoms: Pertinent negatives: diarrhea, fever, vaginal bleeding, cp vomiting. Severity of symptoms: in the emergency department the symptoms are unchanged, despite home interventions. 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 - Social history:: Smoking status: Patient/guardian denies using tobacco, Patient/guardian denies using alcohol. - Ebola Screening: : Patient negative for fever greater than or equal to 101.5 degrees Fahrenheit, and additional compatible Ebola Virus Disease symptoms Patient denies exposure to infectious person Patient denies travel to an Ebola-affected area in the 21 days before illness onset. ROS: 12:30 Constitutional: Negative for body aches, chills, fever, poor PO intake. cp 12:30 Eyes: Negative for injury, pain, redness, and discharge. cp 12:30 ENT: Negative for drainage from ear(s), ear pain, sore throat, difficulty swallowing, difficulty handling secretions. 12:30 Cardiovascular: Negative for chest pain, edema, palpitations. 12:30 Respiratory: Negative for cough, shortness of breath, wheezing. 12:30 Abdomen/GI: Positive for abdominal cramps, Negative for vomiting, diarrhea, constipation, black/tarry stool, rectal bleeding. 12:30 Back: Negative for pain at rest, pain with movement, radiated pain. 12:30 : Positive for urinary frequency, difficulty urinating, Negative for pelvic pain, vaginal bleeding, vaginal discharge. 12:30 Skin: Negative for cellulitis, rash. 12:30 Neuro: Negative for altered mental status, dizziness, headache, syncope, weakness. 12:30 All other systems are negative. Exam: 12:35 Constitutional: The patient appears in no acute distress, alert, awake, non-toxic, well cp developed, well nourished. 12:35 Head/Face: Normocephalic, atraumatic. cp 12:35 Eyes: Periorbital structures: appear normal, Conjunctiva: normal, no exudate, no injection, Sclera: no appreciated abnormality, Lids and lashes: appear normal, bilaterally. 12:35 ENT: External ear(s): are unremarkable, Nose: is normal, Mouth: Lips: moist, Oral mucosa: pink and intact, moist, Posterior pharynx: is normal, airway is patent, no erythema, no exudate. 12:35 Chest/axilla: Inspection: normal, Palpation: is normal, no crepitus, no tenderness. 12:35 Cardiovascular: Rate: tachycardic, Rhythm: regular, Edema: is not appreciated. 12:35 Respiratory: the patient does not display signs of respiratory distress, Respirations: normal, no use of accessory muscles, no retractions, no splinting, no tachypnea, labored breathing, is not present, Breath sounds: are clear throughout, no decreased breath sounds, no stridor, no wheezing. 12:35 Abdomen/GI: Inspection: abdomen appears normal, Bowel sounds: active, all quadrants, Palpation: soft, in all quadrants, mild abdominal tenderness, in the right lower quadrant and left lower quadrant, rebound tenderness, is not appreciated, voluntary guarding, is not appreciated, involuntary guarding, is not appreciated. 12:35 Back: CVA tenderness, is absent. 12:35 Skin: cellulitis, is not appreciated, no rash present. 12:35 Neuro: Orientation: to person, place \T\ time. Mentation: is normal, Cerebellar function: is grossly normal, Motor: moves all fours, strength is normal, Sensation: is normal. Vital Signs: 11:54 BP 100 / 59; Pulse 114; Resp 18; Temp 97.9(O); Pulse Ox 100% on R/A; Weight 45.36 kg; hj Height 5 ft. 6 in. (167.64 cm); Pain 4/10; 12:50 BP 102 / 61; Pulse 100; Resp 16; Pulse Ox 100% on R/A; rb1 13:50 BP 99 / 58; Pulse 98; Resp 15; Pulse Ox 100% ; rb1 14:43 BP 100 / 64; Pulse 89; Resp 17; Pulse Ox 99% on R/A; rb1 11:54 Body Mass Index 16.14 (45.36 kg, 167.64 cm) hj 13:50 Provider notified of BP; no new orders received. rb1 MDM: 12:02 Patient medically screened. cp 13:00 Differential diagnosis: urinary tract infection, vaginosis, dehydration, electrolyte cp abnormality, pyelonephritis. 14:25 Data reviewed: vital signs, nurses notes, lab test result(s). cp 14:25 Counseling: I had a detailed discussion with the patient and/or guardian regarding: the cp historical points, exam findings, and any diagnostic results supporting the discharge/admit diagnosis, lab results, the need for outpatient follow up, an OB/Gyne specialist, to return to the emergency department if symptoms worsen or persist or if there are any questions or concerns that arise at home. Response to treatment: the patient's symptoms have markedly improved after treatment, and as a result, I will discharge patient. Special discussion: Based on the patient's Hx, exam, and Dx evaluation, there is no indication for emergent surgery or inpatient Tx. It is understood by the patient/guardian that if the Sx's persist or worsen they need to return immediately for re-evaluation. 08/30 12:15 Order name: Urine Microscopic Only cp 08/30 12:16 Order name: Basic Metabolic Panel cp 08/30 12:16 Order name: CBC with Diff cp 08/30 12:16 Order name: Creatinine for Radiology cp 08/30 12:16 Order name: Hepatic Function cp 08/30 12:16 Order name: Lipase cp 08/30 12:19 Order name: HCG-Quantitative cp 08/30 12:40 Order name: Urine Dipstick--Ancillary (enter results) dh3 08/30 12:40 Order name: Urine --Ancillary (enter results) 3 08/30 12:55 Order name: CBC with Automated Diff; Complete Time: 13:29 EDMS 08/30 13:29 Interpretation: Normal except: RBC 5.33; HGB 11.5; HCT 35.9; MCV 67.3; MCH 21.6; PLT cp 410; RDW 18.8; MPV 6.5. 12 13:10 Order name: Creatinine (Radiology Only); Complete Time: 13:29 EDMS 08/30 13:11 Order name: Basic Metabolic Panel; Complete Time: 13:29 EDMS 08/30 13:11 Order name: Liver (Hepatic) Function; Complete Time: 13:29 EDMS 08/30 13:11 Order name: Lipase; Complete Time: 13:29 EDMS 08/30 12:15 Order name: Urine Dipstick-Ancillary (obtain specimen); Complete Time: 12:41 cp 08/30 12:15 Order name: FHT's; Complete Time: 14:10 cp 08/30 12:16 Order name: IV Saline Lock; Complete Time: 12:52 cp 08/30 12:16 Order name: Labs collected and sent; Complete Time: 12:52 cp 08/30 13:18 Order name: Urine --Ancillary; Complete Time: 13:29 EDMS 08/30 13:18 Order name: Urine Dipstick-Ancillary; Complete Time: 13:29 EDMS 08/30 13:23 Order name: Manual Differential; Complete Time: 13:29 EDMS 08/30 13:25 Order name: Urine Microscopic Only; Complete Time: 13:31 EDMS 08/30 13:30 Interpretation: Normal except: UWBC 5-10; UBACT 20-50; SQEPI 20-50. cp 08/30 13:33 Order name: HCG, Quantitative; Complete Time: 13:46 EDMS Administered Medications: 12:25 Drug: Tylenol 650 mg Route: PO; rb1 12:50 Follow up: Response: No adverse reaction rb1 12:35 Drug: NS 0.9% 1000 ml Route: IV; Rate: 1 bolus; Site: left antecubital; rb1 13:44 Follow up: IV Status: Completed infusion rb1 13:55 Drug: Potassium Effervescent Tablet 25 mEq Route: PO; rb1 14:25 Follow up: Response: No adverse reaction rb1 13:55 Drug: Macrobid 100 mg Route: PO; rb1 14:25 Follow up: Response: No adverse reaction rb1 Disposition: 08/30/18 14:27 Discharged to Home. Impression: Urinary tract infection, site not specified, related conditions, unspecified. - Condition is Stable. - Discharge Instructions: and Urinary Tract Infection. - Prescriptions for Macrobid 100 mg Oral Capsule - take 1 capsule by ORAL route every 12 hours for 7 days; 14 capsule. - Medication Reconciliation Form, Thank You Letter, Antibiotic Education, Prescription Opioid Use form. - Follow up: Private Physician; When: 2 - 3 days; Reason: Recheck today's complaints. - Problem is new. - Symptoms have improved. Addendum: 08/31/2018 16:28 Co-signature as Attending Physician, Drew Patten MD. g s Signatures: Dispatcher [employer] EDMS Sim Garrett RN RN Eduardo Cintron PA PA cp Barber, Rebecca RN RN rb1 Drew Patten MD MD Corrections: (The following items were deleted from the chart) 08/30 15:10 14:27 08/30/2018 14:27 Discharged to Home. Impression: Urinary tract infection, site rb1 not specified; related conditions, unspecified. Condition is Stable. Forms are Medication Reconciliation Form, Thank You Letter, Antibiotic Education, Prescription Opioid Use. Follow up: Private Physician; When: 2 - 3 days; Reason: Recheck today's complaints. Problem is new. Symptoms have improved. cp
--- NOTE | 2018-08-30 14:28 | ER ---
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 Transition of care: patient was not received from another setting of care. Onset of symptoms was August 30, 2018. Risk Assessment: Do you want to hurt yourself or someone else? Patient reports no desire to harm self or others. Initial Sepsis Screen: Does the patient meet any 2 criteria? No. Patient's initial sepsis screen is negative. Does the patient have a suspected source of infection? No. Patient's initial sepsis screen is negative. Care prior to arrival: None. 11:50 Method Of Arrival: Ambulatory 11:50 Acuity: VERONICA 3 hj Triage Assessment: 11:54 General: Appears in no apparent distress. uncomfortable, Behavior is calm, cooperative, hj appropriate for age. Pain: Complains of pain in abdomen. GI: Reports lower abdominal pain, bloating. 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 - Social history:: Smoking status: Patient/guardian denies using tobacco, Patient/guardian denies using alcohol. - Ebola Screening: : Patient negative for fever greater than or equal to 101.5 degrees Fahrenheit, and additional compatible Ebola Virus Disease symptoms Patient denies exposure to infectious person Patient denies travel to an Ebola-affected area in the 21 days before illness onset. Screenin:54 Abuse screen: Denies threats or abuse. Denies injuries from another. Nutritional hj screening: No deficits noted. Tuberculosis screening: No symptoms or risk factors identified. Fall Risk None identified. Assessment: 11:54 GI: Bowel sounds present X 4 quads. hj 12:00 General: Appears in no apparent distress. comfortable, slender, Behavior is calm, rb1 cooperative, Denies fever. Pain: Complains of pain in abdomen Pain currently is 4 out of 10 on a pain scale. Quality of pain is described as crampy, Pain began 2-3 days ago. Neuro: Level of Consciousness is awake, alert, obeys commands, Oriented to person, place, time, situation. Cardiovascular: Capillary refill < 3 seconds is brisk in bilateral fingers. Respiratory: Airway is patent Respiratory effort is even, unlabored, Respiratory pattern is regular, symmetrical. : Reports Pt. stated, "I feel like I have to pee but on only pee a little bit when I go. I was treated for a UTI about 1-2 weeks ago.". Derm: Skin is pink, warm \\T\\ dry. 13:00 Reassessment: Patient appears in no apparent distress at this time. No changes from rb1 previously documented assessment. 14:00 Reassessment: Patient appears in no apparent distress at this time. Patient and/or rb1 family updated on plan of care and expected duration. Pain level reassessed. Patient is alert, oriented x 3, equal unlabored respirations, skin warm/dry/pink. Pain 3/10. 15:00 Reassessment: Patient appears in no apparent distress at this time. No changes from rb1 previously documented assessment. Vital Signs: 11:54 BP 100 / 59; Pulse 114; Resp 18; Temp 97.9(O); Pulse Ox 100% on R/A; Weight 45.36 kg; hj Height 5 ft. 6 in. (167.64 cm); Pain 4/10; 12:50 BP 102 / 61; Pulse 100; Resp 16; Pulse Ox 100% on R/A; rb1 13:50 BP 99 / 58; Pulse 98; Resp 15; Pulse Ox 100% ; rb1 14:43 BP 100 / 64; Pulse 89; Resp 17; Pulse Ox 99% on R/A; rb1 11:54 Body Mass Index 16.14 (45.36 kg, 167.64 cm) hj 13:50 Provider notified of BP; no new orders received. rb1 Vitals: 14:09 Heart Tones 139 bpm. rb1 ED Course: 11:49 Patient arrived in ED. as 11:53 Triage completed. hj 11:54 Eduardo Cintron PA is PHCP. cp 11:54 Drew Patten MD is Attending Physician. cp 11:54 Arm band placed on right wrist. hj 12:00 Patient has correct armband on for positive identification. Bed in low position. Call rb1 light in reach. Side rails up X 1. Pulse ox on. NIBP on. Warm blanket given. 12:12 Tanja Smith, RN is Primary Nurse. rb1 12:35 Inserted saline lock: 22 gauge in left antecubital area, using aseptic technique. Blood rb1 collected. 15:10 No provider procedures requiring assistance completed. IV discontinued, intact, rb1 bleeding controlled, No redness/swelling at site. Pressure dressing applied. Administered Medications: 12:25 Drug: Tylenol 650 mg Route: PO; rb1 12:50 Follow up: Response: No adverse reaction rb1 12:35 Drug: NS 0.9% 1000 ml Route: IV; Rate: 1 bolus; Site: left antecubital; rb1 13:44 Follow up: IV Status: Completed infusion rb1 13:55 Drug: Potassium Effervescent Tablet 25 mEq Route: PO; rb1 14:25 Follow up: Response: No adverse reaction rb1 13:55 Drug: Macrobid 100 mg Route: PO; rb1 14:25 Follow up: Response: No adverse reaction rb1 Outcome: 14:27 Discharge ordered by . cp 15:10 Patient left the ED. rb1 15:10 Discharged to home ambulatory. rb1 15:10 Condition: stable 15:10 Discharge instructions given to patient, Instructed on discharge instructions, follow up and referral plans. medication usage, Demonstrated understanding of instructions, follow-up care, medications, Prescriptions given X 3. Addendum: 09/03/2018 07:21 Addendum: Culture Results: Positive urine culture. No further action required. Bacteria h b sensitive to prescribed antibiotic. Signatures: Tiffany Quintero Henry, RN RN Eduardo Cintron PA PA cp Tanja Smith, RN RN rb1 Ami Brannon RN RN Corrections: (The following items were deleted from the chart) 08/30 16:03 14:00 Reassessment: Patient appears in no apparent distress at this time. Patient rb1 and/or family updated on plan of care and expected duration. Pain level reassessed. Patient is alert, oriented x 3, equal unlabored respirations, skin warm/dry/pink. rb1
== END 2018-08-30 15:10 | disposition home or self-care (01) ==
LOC: ER 11:45
DX: O23.42 Unspecified infection of urinary tract in pregnancy, second trimester (principal); Z3A.17 17 weeks gestation of pregnancy
CPT/HCPCS: 36415; 80048; 80076; 81003; 81015; 81025; 83690; 84702; 85025; 87077; 87086; 87088; 87186; 96360; 99284; J7030

== ENCOUNTER 2023-02-11 17:42 | Emergency (ER) | payer OTHER ==
[2023-02-11 18:56] LABS: Urine Bacteria 20-50 /HPF (<20); Urine Bilirubin NEGATIVE (Negative); Urine Blood 3+ (OVER) (Negative); Urine Clarity Extremely Turbid (Clear); Urine Color Brown (Yellow); Urine Glucose NEGATIVE (Negative); Urine Mucus Slight /HPF (None Seen); Urine Protein 2+ (Negative); Urine RBC >50 /HPF (None Seen); Urine Urobilinogen 2+ (Normal); Urine WBC Clump Few /HPF (None Seen); Urine pH 6.5 (5.0-7.0)
--- NOTE | 2023-02-11 20:16 | ER ---
Nurse's Notes [facility] Name: Tigist Farias Age: 27 yrs Sex: Female : 1995 Arrival Date: 02/11/2023 Time: 17:42 Bed DIS2 Private MD: Diagnosis: Presentation: 02/11 17:58 Chief complaint: Patient states: i have a UTI because it ansari when i pee and iw discomfort when peeing and my lower back is hurting , on and off X 1-2 weeks, backpain X 3 days. Coronavirus screen: At this time, the client does not indicate any symptoms associated with coronavirus-19. Ebola Screen: Patient negative for fever greater than or equal to 101.5 degrees Fahrenheit, and additional compatible Ebola Virus Disease symptoms Patient denies exposure to infectious person. Patient denies travel to an Ebola-affected area in the 21 days before illness onset. No symptoms or risks identified at this time. Initial Sepsis Screen: Does the patient meet any 2 criteria? No. Patient's initial sepsis screen is negative. Does the patient have a suspected source of infection? No. Patient's initial sepsis screen is negative. Risk Assessment: Do you want to hurt yourself or someone else? Patient reports no desire to harm self or others. Onset of symptoms was February 08, 2023. 17:58 Method Of Arrival: Ambulatory iw 18:00 Acuity: VERONICA 4 iw Historical: - Allergies: 17:59 No Known Allergies; iw - Home Meds: 17:59 none [Active]; iw - PMHx: 17:59 kidney infection; iw - PSHx: 17:59 section; iw Vital Signs: 18:00 BP 102 / 74; Pulse 69; Resp 16; Temp 98.2; Pulse Ox 100% on R/A; Weight 58.97 kg; iw Height 5 ft. 6 in. ; Pain 7/10; 18:00 Body Mass Index 20.98 (58.97 kg, 167.64 cm) iw 18:00 Pain Scale: Adult iw ED Course: 17:46 Patient arrived in ED. mr 17:46 [facility] kb 17:46 Abhay Daniel MD is Attending Physician. kb 18:00 Arm band placed on. iw 18:01 Triage completed. iw 18:20 Urinalysis w/ reflexes Sent. iw Administered Medications: No medications were administered Outcome: 20:16 Patient left the ED. kd3 Signatures: Angelia Murray FNP-C FNP-Ckb Rivera, Mary mr Williams, Irene, RN RN iw Isa Samuel RN RN kd3
--- NOTE | 2023-02-11 20:16 | EDPHYS ---
Physician Documentation [facility] Name: Tigist Farias Age: 27 yrs Sex: Female : 1995 Arrival Date: 02/11/2023 Time: 17:42 Bed DIS2 Private MD: ED Physician Abhay Daniel HPI: 02/11 18:25 This 27 yrs old Female presents to ER via Ambulatory with complaints of Urinary kb Problem, Back Pain. 18:25 The patient presents with urinary symptoms, dysuria, frequency. kb 18:25 Onset: The symptoms/episode began/occurred 2 week(s) ago. Modifying factors: The kb symptoms are alleviated by nothing, the symptoms are aggravated by urinating. Associated signs and symptoms: Pertinent positives: dysuria, Pertinent negatives: fever. Severity of symptoms: At their worst the symptoms were moderate, in the emergency department the symptoms are unchanged. The patient has not experienced similar symptoms in the past. The patient has not recently seen a physician. Pt reports dysuria for 1-2 weeks and low back pain for 3 days. Denies fever. Historical: - Allergies: 17:59 No Known Allergies; iw - Home Meds: 17:59 none [Active]; iw - PMHx: 17:59 kidney infection; iw - PSHx: 17:59 section; iw ROS: 18:26 Constitutional: Negative for fever, chills, and weight loss. kb 18:26 Back: Positive for pain at rest, of the low back area. 18:26 : Positive for urinary symptoms, burning with urination. 18:26 All other systems are negative. Exam: 18:26 Constitutional: This is a well developed, well nourished patient who is awake, alert, kb and in no acute distress. Head/Face: Normocephalic, atraumatic. ENT: Moist Mucous membranes Cardiovascular: Regular rate and rhythm with a normal S1 and S2. No gallops, murmurs, or rubs. No pulse deficits. Respiratory: Respirations even and unlabored. No increased work of breathing. Talking in full sentences Abdomen/GI: Soft, non-tender. No distention Back: No spinal tenderness. No costovertebral tenderness. Full range of motion. Skin: Warm, dry with normal turgor. Normal color. MS/ Extremity: Pulses equal, no cyanosis. Neurovascular intact. Full, normal range of motion. Neuro: Awake and alert, GCS 15, oriented to person, place, time, and situation. Moves all extremities. Normal gait. Vital Signs: 18:00 BP 102 / 74; Pulse 69; Resp 16; Temp 98.2; Pulse Ox 100% on R/A; Weight 58.97 kg; iw Height 5 ft. 6 in. ; Pain 7/10; 18:00 Body Mass Index 20.98 (58.97 kg, 167.64 cm) iw 18:00 Pain Scale: Adult iw MDM: 17:46 Patient medically screened. kb 18:26 Differential diagnosis: urinary tract infection, low back pain, pyelonephritis, kidney kb stone. Data reviewed: vital signs, nurses notes. Test considered but Not performed: CT: CT considered, but pt has no CVA tenderness. LBP across lower back, just above buttocks. Counseling: I had a detailed discussion with the patient and/or guardian regarding: the historical points, exam findings, and any diagnostic results supporting the discharge/admit diagnosis, lab results, the need for outpatient follow up, a family practitioner, to return to the emergency department if symptoms worsen or persist or if there are any questions or concerns that arise at home. 18:50 Transition of care: After a detail discussion of the patient's case, care is kb transferred to Abhay Daniel MD. 20:02 ED course: Patient with a urinary tract infection she left after the uti diagnosis she bs3 refused to come back. 02/12 09:42 ED course: attempted to call patient back but she refused to return or accept bs3 antibiotics. 02/11 17:50 Order name: Urinalysis w/ reflexes; Complete Time: 19:36 kb 02/11 19:02 Order name: Urine Culture EDMS Administered Medications: No medications were administered Disposition: 09:42 I reviewed the patient's care provided by Advanced Practice Provider \T\ agree w/ the bs3 diagnosis \T\ care plan. I personally saw the pt \T\ performed a substantive portion of the visit, incldng all aspects of the (History/Exam/Medical Decision Making). Disposition Summary: 02/11/23 20:16 Eloped Reason: wait time kd3 Signatures: Dispatcher [employer] EDMS Angelia Murray, Nydia Kumari RN RN iw Isa Samuel RN RN kd3 Abhay Daniel MD MD bs3 Corrections: (The following items were deleted from the chart) 09:43 02/11 20:16 after being seen by provider yenny bui
[2023-02-11 20:39] VITALS: BP 102/74; TEMP 98.2; O2SAT 100
== END 2023-02-11 20:16 | disposition left against medical advice (07) ==
LOC: ER 17:42
DX: N39.0 Urinary tract infection, site not specified (principal)
CPT/HCPCS: 81001; 87086; 87088; 99282